=== PATIENT | female | born 1960 | race Caucasian/White ===

== ENCOUNTER → 2025-04-20 09:08 | Outpatient (REF) | payer OTHER, SELFPAY | LOC: HWRAD 09:08 | PROVIDERS: ATTENDING PHYSICIAN Urology; FAMILY PHYSICIAN Family Medicine; REFERRING PHYSICIAN Internal Medicine Hematology & Oncology | DX: N81.6 Rectocele (principal); K59.00 Constipation, unspecified; R82.71 Bacteriuria; M62.89 Other specified disorders of muscle; N39.0 Urinary tract infection, site not specified | CPT/HCPCS: 76775 ==